=== PATIENT | female | born 1980 | race American Indian/Alaskan Native ===

== ENCOUNTER 2017-12-10 09:24 | Emergency (ER) | payer MEDICARE ==
[2017-12-10] MEDS ORDERED: ASPIRIN PO ONE (09:51)
[2017-12-10 11:12] LABS: Bacteria,Urine 1+ /HPF (Negative); Bilirubin,Urine NEG (Negative); Blood,Urine NEG (Negative); Color,Urine Yellow (Yellow); Mucus,Urine FEW /HPF; Protein,Urine <15 mg/dL mg/dL (Negative); RBC,Urine < 1.0 /HPF (0.0-6.0); Urobilinogen,Urine < 2.0 mg/dL (<2.0)
[2017-12-10 11:45] LABS: Hematocrit 39.1 % (30.3-42.9); Hemoglobin 12.8 gm/dl (10.1-14.3); Mean Corpuscular HGB Conc 33 % (30-34); Mean Corpuscular Hemoglobin 32 pg (28-32); Mean Corpuscular Volume 99 fl (79-97); Mean Platelet Volume 8.4 fl (6-12); Platelet Count 254 K/mm3 (140-440); Red Blood Count 3.95 M/mm3 (3.65-5.03); Red Cell Distribution Width 13.8 % (13.2-15.2)
[2017-12-10 11:46] LABS: Basophils # (Auto) 0.1 K/mm3 (0.0-0.1); Basophils % (Auto) 0.7 % (0.0-1.8); Eosinophils # (Auto) 0.5 K/mm3 (0.0-0.4); Eosinophils % (Auto) 6.2 % (0.0-4.3); Lymphocytes # (Auto) 2.3 K/mm3 (1.2-5.4); Lymphocytes % (Auto) 29.9 % (13.4-35.0); Monocytes # (Auto) 0.5 K/mm3 (0.0-0.8); Monocytes % (Auto) 6.8 % (0.0-7.3)
[2017-12-10 12:04] LABS: Alanine Aminotransferase 23 units/L (7-56); Albumin 3.7 g/dL (3.9-5); BUN/Creatinine Ratio 11; Blood Urea Nitrogen 8 mg/dL (7-17); Calcium 9.4 mg/dL (8.4-10.2); Hemolysis Index 12
--- NOTE | 2017-12-10 14:22 | Emergency Department Report ---
ED General Adult HPI - General Chief complaint: Nausea/Vomiting/Diarrhea Stated complaint: NAUSEA,PAIN,DIZZINESS Time Seen by Provider: 12/10/17 14:21 Source: patient Mode of arrival: Ambulatory Limitations: No Limitations - History of Present Illness Initial comments: This is a 37-year-old female residing in a psychiatric [place]. She presents to the emergency department for variable reason. Apparently she may have mentioned chest pain initially whereupon an EKG was ordered. It was apparently later canceled. On my encounter the patient stated that she wanted to find out if she was . She was resting comfortably. She did state that she had some very non-well characterized chest pain which she could not describe or temporarily relate. She states that she might be on some sort of medicine like lisinopril which she thinks needs to be changed. However she did not bring any medicine with her from her program nor a medication list. I do not find any previous medical history on our EMR system. -: unknown Location: chest Associated Symptoms: denies other symptoms (concerned about ) - Related Data Allergies Allergy/AdvReac Type Severity Reaction Status Date / Time No Known Allergies Allergy Unverified 12/10/17 09:45 ED Review of Systems ROS: Stated complaint: NAUSEA,PAIN,DIZZINESS Other details as noted in HPI Constitutional: weakness (does not complain of dizziness ). denies: chills, fever Eyes: denies: eye pain, eye discharge, vision change ENT: denies: ear pain, throat pain Respiratory: denies: cough, shortness of breath, wheezing Cardiovascular: chest pain. denies: palpitations Endocrine: no symptoms reported Gastrointestinal: denies: abdominal pain, nausea, diarrhea Genitourinary: denies: urgency, dysuria, discharge Musculoskeletal: denies: back pain, joint swelling, arthralgia Skin: denies: rash, lesions Neurological: denies: headache, weakness, paresthesias Psychiatric: denies: anxiety, depression Hematological/Lymphatic: denies: easy bleeding, easy bruising ED Past Medical Hx - Past Medical History Previous Medical History?: Yes Hx Psychiatric Treatment: Yes (SCHIZOPHRENIA, DRUG USE) Hx Asthma: Yes Additional medical history: HEART MURMUR, VAGINAL DELIVERY X 3 - Surgical History Past Surgical History?: No - Social History Smoking Status: Current Every Day Smoker Substance Use Type: Prescribed ED Physical Exam - General Limitations: Other (psychiatric disorder) General appearance: alert, in no apparent distress - Head Head exam: Present: atraumatic, normocephalic - Eye Eye exam: Present: normal appearance. Absent: scleral icterus - ENT ENT exam: Present: mucous membranes moist - Neck Neck exam: Present: normal inspection - Respiratory Respiratory exam: Present: normal lung sounds bilaterally. Absent: respiratory distress - Cardiovascular Cardiovascular Exam: Present: regular rate, normal rhythm. Absent: systolic murmur, diastolic murmur, rubs, gallop - GI/Abdominal GI/Abdominal exam: Present: soft, normal bowel sounds. Absent: distended, tenderness, guarding, rebound, rigid - Extremities Exam Extremities exam: Present: normal inspection - Back Exam Back exam: Present: normal inspection - Neurological Exam Neurological exam: Present: alert, oriented X3, CN II-XII intact. Absent: motor sensory deficit - Psychiatric Psychiatric exam: Present: normal affect, normal mood - Skin Skin exam: Present: warm, dry, intact, normal color. Absent: rash ED Course Vital Signs 12/10/17 09:45 Temperature 98.2 F Pulse Rate 96 H Respiratory 18 Rate Blood Pressure 119/72 O2 Sat by Pulse 99 Oximetry - Reevaluation(s) Reevaluation #1: Patient has a normal EKG. Her laboratories are within acceptable limits. She is essentially asymptomatic. She has chronic schizophrenia. I do not see any indication for further workup. I do not believe she has a history of hypertension nor is she likely on lisinopril. She will be referred for outpatient follow-up. 12/10/17 15:30 ED Medical Decision Making - Lab Data Result diagrams: 12/10/17 11:25 12/10/17 11:25 Laboratory Results - last 24 hr 12/10/17 12/10/17 12/10/17 10:44 11:25 11:25 WBC 7.8 RBC 3.95 Hgb 12.8 Hct 39.1 MCV 99 H MCH 32 MCHC 33 RDW 13.8 Plt Count 254 Lymph % (Auto) 29.9 [place] % (Auto) 6.8 Eos % (Auto) 6.2 H Baso % (Auto) 0.7 Lymph # 2.3 [place] # 0.5 Eos # 0.5 H Baso # 0.1 Seg Neutrophils % 56.4 Seg Neutrophils # 4.4 Sodium 139 Potassium 4.2 Chloride 101.5 Carbon Dioxide 27 Anion Gap 15 BUN 8 Creatinine 0.7 Estimated GFR > 60 BUN/Creatinine Ratio 11 Glucose 121 H Calcium 9.4 Total Bilirubin 0.40 AST 24 ALT 23 Alkaline Phosphatase 84 Total Protein 6.9 Albumin 3.7 L Albumin/Globulin Ratio 1.2 Lipase Urine Color Yellow Urine Turbidity Clear Urine pH 7.0 Ur Specific [place] 1.012 Urine Protein <15 mg/dl Urine Glucose (UA) Neg Urine Ketones Neg Urine Blood Neg Urine Nitrite Neg Urine Bilirubin Neg Urine Urobilinogen < 2.0 Ur Leukocyte Esterase Tr Urine WBC (Auto) 3.0 Urine RBC (Auto) < 1.0 U Epithel Cells (Auto) 13.0 Urine Bacteria (Auto) 1+ Urine Mucus Few 12/10/17 11:25 WBC RBC Hgb Hct MCV MCH MCHC RDW Plt Count Lymph % (Auto) [place] % (Auto) Eos % (Auto) Baso % (Auto) Lymph # [place] # Eos # Baso # Seg Neutrophils % Seg Neutrophils # Sodium Potassium Chloride Carbon Dioxide Anion Gap BUN Creatinine Estimated GFR BUN/Creatinine Ratio Glucose Calcium Total Bilirubin AST ALT Alkaline Phosphatase Total Protein Albumin Albumin/Globulin Ratio Lipase 55 Urine Color Urine Turbidity Urine pH Ur Specific [place] Urine Protein Urine Glucose (UA) Urine Ketones Urine Blood Urine Nitrite Urine Bilirubin Urine Urobilinogen Ur Leukocyte Esterase Urine WBC (Auto) Urine RBC (Auto) U Epithel Cells (Auto) Urine Bacteria (Auto) Urine Mucus Critical care attestation.: If time is entered above; I have spent that time in minutes in the direct care of this critically ill patient, excluding procedure time. ED Disposition Clinical Impression: Atypical chest pain Schizophrenia Qualifiers: Schizophrenia type: other Qualified Code(s): F20.89 - Other schizophrenia; F20.8 - Other schizophrenia Disposition: - TO HOME OR SELFCARE Is pt being admited?: No Does the pt Need Aspirin: No Condition: Stable Instructions: Chest Pain (ED), Schizophrenia (ED) Additional Instructions: Return any acute change or problem. Follow-up with primary care physician group : See referral. Referrals: PRIMARY CARE, [Primary Care Provider] - 3-5 Days Time of Disposition: 15:32
[2017-12-10 14:50] LABS: HCG Qualitative,Urine Negative (Negative)
[2017-12-10 15:42] VITALS: BP 119/80
== END 2017-12-10 15:43 | disposition home or self-care (01) ==
LOC: ED 09:24
DX: R07.89 Other chest pain (principal); F20.89 Other schizophrenia; J45.909 Unspecified asthma, uncomplicated; F17.200 Nicotine dependence, unspecified, uncomplicated
CPT/HCPCS: 36415; 80053; 81001; 81025; 83690; 85025; 93005; 93010; 99284